=== PATIENT | female | born 1990 | race Asian ===

== ENCOUNTER 2024-09-13 20:33 | Inpatient (IN) | payer OTHER ==
[~2024-09-13] VITALS: Ht 157.5 cm; Wt 59.0 kg
[2024-09-13 20:39] VITALS: O2SAT 98
[2024-09-13] MEDS: SODIUM CHLORIDE 0.9% 1,000 ML IV ONE (21:10)
[2024-09-13] MEDS: KETOROLAC 30MG/ML VIAL IV STA (21:11)
[2024-09-13 21:42] LABS: BASOPHILS % 0.2 % (0.0-2.0); EOSINOPHILS % 2.2 % (0.0-5.0); HEMATOCRIT. 36.9 % (36.0-48.0); HEMOGLOBIN. 12.5 g/dL (12.0-16.0); LYMPHOCYTES % 32.8 % (20.0-50.0); MEAN CORPUSCULAR HEMOGLOBIN 27.5 pg (28.0-32.0); MEAN CORPUSCULAR HGB CONC 33.9 g/dL (31.0-37.0); MEAN CORPUSCULAR VOLUME 81.2 fL (81.0-99.0); MEAN PLATELET VOLUME 8.5 fl (7.4-10.4); MONOCYTES % 11.5 % (2.0-8.0); NEUTROPHILS % 53.3 % (40.0-76.0); PLATELET 289 x1000/uL (130-400); RED BLOOD CELL COUNT 4.55 mill/uL (4.2-5.4); WHITE BLOOD COUNT 7.8 x1000/uL (4.5-11.0)
[2024-09-13 21:47] LABS: CHLORIDE 102 mEq/L (98-107); SODIUM 139 mEq/L (136-145)
[2024-09-13 21:49] LABS: CALCIUM 9.6 mg/dL (8.7-10.4); CARBON DIOXIDE 30 mEq/L (21-32)
[2024-09-13 21:54] LABS: CREATININE 0.6 mg/dL (0.6-1.0); GLUCOSE 120 mg/dL (70-105); HCG SCREEN NEGATIVE; UREA NITROGEN BLOOD 20 mg/dL (9-23)
[2024-09-13 21:55] LABS: PROTHROMBIN TIME 10.3 sec (9.6-11.0)
[2024-09-13 21:56] LABS: ALANINE AMINOTRANSFERASE 58 IU/L (10-49); ALBUMIN 4.2 g/dL (3.2-4.8); ASPARTATE AMINOTRANSFERASE 32 IU/L (<34); BILIRUBIN DIRECT 0.1 mg/dL (<=3.0); BILIRUBIN TOTAL 0.4 mg/dL (0.1-1.0)
[2024-09-13 21:57] LABS: PROTEIN TOTAL 6.6 g/dL (6.0-8.3)
[2024-09-13 23:55] LABS: CLARITY URINE CLEAR (CLEAR); COLOR URINE DARK YELLOW (YELLOW); GLUCOSE URINE NEGATIVE (NEGATIVE); KETONES URINE NEGATIVE (NEGATIVE); LEUKOCYTE ESTERASE URINE 2+ (NEGATIVE); NITRITE URINE POSITIVE (NEGATIVE); OCCULT BLOOD URINE TRACE (NEGATIVE); PH URINE 7.5 (4.5-8.0); PROTEIN URINE NEGATIVE (NEGATIVE); SPECIFIC GRAVITY URINE 1.019 (1.005-1.030)
[2024-09-14 00:19] LABS: SQUAMOUS EPITHELIAL CELL URINE 2+ /lpf (RARE/1+)
[2024-09-14 00:21] LABS: AMORPHOUS SEDIMENT URINE 1+ /lpf; BACTERIA URINE TRACE; RBC URINE 15-25 /hpf (0-2)
[2024-09-14] MEDS: CEFTRIAXONE 2GM/50ML 50 ML IV ONE (00:21)
[2024-09-14] MEDS: SODIUM CHLORIDE 0.9% 1,000 ML IV ONE (01:07)
[2024-09-14 02:50] LABS: LACTIC ACID 2.4 mmol/L (0.4-2.0)
[2024-09-14] MEDS ORDERED: MORPHINE SULFATE 4 MG/ML INJ (FOR IV/IM USE) IV PRN (03:30)
[2024-09-14] MEDS: SODIUM CHLORIDE 0.9% 1,000 ML IV SCH (03:54)
[2024-09-14] MEDS ORDERED: NALOXONE HCL 0.4MG/ML VIAL IV PRN (04:00)
[2024-09-14] MEDS: ACETAMINOPHEN 325MG TABLET PO PRN (04:10)
[2024-09-14] MEDS ORDERED: CEFTRIAXONE 1GM/50ML 50 ML IV SCH (05:00)
[2024-09-14 05:03] VITALS: BP 113/54; PULSE 125; RESP 18; TEMP 36.8
[2024-09-14 08:00] VITALS: BP 105/56; PULSE 107; RESP 18; TEMP 36.7; O2SAT 99
[2024-09-14 12:00] VITALS: BP 104/57; PULSE 101; RESP 18; TEMP 36.7; O2SAT 99
[2024-09-14 16:00] VITALS: BP 107/59; PULSE 98; RESP 19; TEMP 36.8; O2SAT 99
[2024-09-14 20:00] VITALS: BP 129/74; PULSE 97; RESP 18; TEMP 36.3; O2SAT 98
[2024-09-15] MEDS ORDERED: CEFTRIAXONE 1GM/50ML 50 ML IV SCH
== END 2024-09-14 21:07 | disposition home or self-care (01) | DRG 392 ==
LOC: ER 20:33 → EDBEDREQ 09-14 00:44 → 8EST 09-14 01:17 → EDBEDREQSVC 09-14 01:19 → EDBEDREQ 09-14 01:19 → ENRESERV 09-14 02:11
PROVIDERS: ADMIT Internal Medicine; ATTEND Internal Medicine
DX: R10.84 Generalized abdominal pain (principal); N83.292 Other ovarian cyst, left side; N20.0 Calculus of kidney; R00.0 Tachycardia, unspecified; R31.29 Other microscopic hematuria
CPT/HCPCS: 36415; 74176; 76830; 76856; 80048; 80076; 81003; 83605; 84145; 84703; 85025; 96361; 96365; 96375; 99285; J0696; J1885; J7030